=== PATIENT | male | born 1945 | race African-American/Black ===

== ENCOUNTER 2017-12-09 06:21 | Day surgery (SDC) | payer OTHER ==
[~2017-12-09] VITALS: Ht 182.9 cm; Wt 80.9 kg
[~2017-12-09 06:21] MED LIST: COREG25 M1 PO; LASIX20 MG PO; LIPITOR40 MG PO; LO-DOSE ASPIRIN81 M1 PO; MULTI VITAMIN1 EACH PO; PROTONIX40 MG PO; REQUIP0.5 MG PO
[2017-12-09 07:25] VITALS: BP 134/71
[2017-12-09 07:49] LABS: HEMATOCRIT 42.9 % (38.0-50.0); MCV 91.5 FL (86-99)
[2017-12-09 10:15] VITALS: BP 142/81
== END 2017-12-09 10:52 | disposition home or self-care (01) ==
LOC: SDC 06:21
PROVIDERS: Orthopaedic Surgery
PROC: 01N40ZZ Release Ulnar Nerve, Open Approach (ICD-10-PCS; principal; 2017-12-09)
DX: G56.21 Lesion of ulnar nerve, right upper limb (principal); I10 Essential (primary) hypertension; Z79.82 Long term (current) use of aspirin
CPT/HCPCS: 71046; 85014; 85018; J0131; J0690; J2405; J3010; S0020